=== PATIENT | female | born 1990 | race African-American/Black ===

== ENCOUNTER 2020-04-26 15:37 | Emergency (ER) | payer BC, OTHER ==
[2020-04-26 15:49] VITALS: BP 111/80; PULSE 76; TEMP 99.6; BMI 20.2
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
== END 2020-04-26 16:09 | disposition home or self-care (01) ==
LOC: FER 15:37
DX: N64.4 Mastodynia (principal); Y04.8XXA Assault by other bodily force, initial encounter
CPT/HCPCS: 99283-25

== ENCOUNTER 2024-08-09 09:17 | Emergency (ER) | payer BC, OTHER ==
[2024-08-09 09:40] VITALS: BP 124/89; PULSE 82; RESP 18; TEMP 99; BMI 32.1
[2024-08-09] MEDS ORDERED: ACETAMINOPHEN 500 MG TABLET (FP) ONE (10:40)
[2024-08-09] MEDS ORDERED: ONDANSETRON *ODT* 4 MG TABLET ONE (10:41)
[2024-08-09] MEDS: ONDANSETRON *ODT* 4 MG TABLET SL ONE (10:55)
[2024-08-09] MEDS: ACETAMINOPHEN 500 MG TABLET (FP) PO ONE (11:00)
[2024-08-09 13:39] LABS: HIV INTERPRETATION NEGATIVE (NEGATIVE)
== END 2024-08-09 11:55 | disposition home or self-care (01) ==
LOC: FER 09:17
DX: O26.891 Other specified pregnancy related conditions, first trimester (principal); R10.9 Unspecified abdominal pain; Z3A.01 Less than 8 weeks gestation of pregnancy
CPT/HCPCS: 36415; 76817-TC; 81003; 84702; 86803; 87086; 87389; 99284-25; Q0162